=== PATIENT | male | born 1955 | race Caucasian/White ===

== ENCOUNTER 2017-12-09 15:18 | Emergency (ER) | payer OTHER ==
[~2017-12-09] VITALS: Ht 182.9 cm; Wt 96.9 kg
[2017-12-09 15:38] VITALS: BP 147/95
== END 2017-12-09 18:15 | disposition home or self-care (01) ==
LOC: ER 15:18
DX: Z47.89 Encounter for other orthopedic aftercare (principal); G89.29 Other chronic pain; Z88.0 Allergy status to penicillin; Z98.890 Other specified postprocedural states
CPT/HCPCS: 29515; 99283